=== PATIENT | female | born 1950 | race Caucasian/White ===

== ENCOUNTER 2017-07-27 03:20 | Emergency (ER) | payer MEDICARE, OTHER ==
[2017-07-27 03:55] LABS: Bilirubin Negative (Negative); Blood, Urine Large (Negative); Glucose, Urine (Dipstick) Negative (Negative); Ketone, Urine Negative (Negative); Nitrite Positive (Negative); Protein, Urine (Dipstick) Negative (Neg-Trace); Urobilinogen 0.2 mg/dL (0.2-1.0)
[2017-07-27 03:56] LABS: Bacteria/HPF None Seen HPF (None Seen); Hyaline Casts/LPF 4-6 HYALINE CAST LPF (0-3 Hyaline); Squamous Epithelial None Seen HPF (0-3)
[2017-07-27] MEDS ORDERED: Phenazopyridine HCl 97.5 MG TABLET ONE (04:35)
[2017-07-27] MEDS ORDERED: Ciprofloxacin 500 MG TAB ONE (04:38)
== END 2017-07-27 04:40 | disposition home or self-care (01) ==
LOC: ERS 03:20
DX: N39.0 Urinary tract infection, site not specified (principal); I10 Essential (primary) hypertension
CPT/HCPCS: 81003; 81015; 87077; 87086; 87186; 99283